=== PATIENT | female | born 2000 | race African-American/Black ===

== ENCOUNTER 2022-09-16 13:11 | Day surgery (SDC) | payer OTHER, SELFPAY ==
[2022-09-16 14:42] VITALS: BMI 22.6
[2022-09-16] MEDS ORDERED: hydrALAZINE 20 MG/ML VIAL SLOW IVP PRN (15:11)
[2022-09-16] MEDS ORDERED: Lactated Ringer's 1,000 ML IV SCH (15:15)
[2022-09-16 15:32] LABS: Bilirubin Neg (Negative); Blood, Urine Negative (Negative); Clarity Clear (Clear); Glucose, Urine (Dipstick) Normal (Negative); Ketone, Urine 50 mg/dL (Negative); Leukocyte 25 (Negative); Nitrite Negative (Negative); Protein, Urine (Dipstick) 15 mg/dl (Neg-Trace); Specific Gravity, Urine 1.015 (1.005-1.030); pH, Urine 6.5 (5.0-9.0)
[2022-09-16 15:38] LABS: CAUTI Indications for Culture Pelvic or flank pain; RBC/HPF 0-3 HPF (0-3)
[2022-09-16 15:39] LABS: Bacteria/HPF 2+ HPF (None Seen); Mucous/LPF 3+ LPF (<2+)
[2022-09-16 15:41] LABS: Trichomonas/HPF 1+ HPF (None Seen)
[2022-09-16 15:42] LABS: Urine Culture Reflex No No
[2022-09-16 15:48] LABS: #Eosinphils 0.1 10x3/uL (0.0-0.5); #Monocytes 0.6 10x3/uL (0.0-1.1); #Neutrophils 5.7 10x3/uL (1.5-8.4); %Basophils 0.4 % (0.0-2.0); %Eosinophils 1.3 % (0.0-6.0); %Lymphocytes 23.8 % (18.0-47.0); %Monocytes 7.5 % (0.0-10.0); %Neutrophils 66.6 % (40.0-75.0); Hematocrit 26.3 % (34.9-44.5); Hemoglobin 8.3 g/dL (12.0-15.5); Mean Corpuscular HGB CONC 31.6 g/dL (32.0-36.0); Mean Corpuscular Hemoglobin 26.8 pg (27.0-33.0); Mean Corpuscular Volume 84.8 fl (81.6-98.3); Mean Platelet Volume 11.9 fl (7.4-10.4); Platelet Count 149 10x3/uL (150-450); RBC Distribution Width 13.4 % (11.5-14.5); White Blood Cell (WBC) Count 8.5 10x3/uL (3.5-10.5)
[2022-09-16 15:58] LABS: ALT (SGPT) 26 U/L (8-55); AST (SGOT) 29 U/L (5-34); Albumin 3.6 g/dL (3.5-5.0); Alkaline Phosphatase 49 U/L (40-100); Anion Gap 14 mmol/L (10-20); BUN (Urea Nitrogen) 6 mg/dL (7.0-18.7); Bilirubin, Total 0.4 mg/dL (0.2-1.2); Calc. Creatinine Clearance 129 mL/min (70-130); Calcium 8.7 mg/dL (7.8-10.44); Carbon Dioxide 21 mmol/L (22-29); Chloride 105 mmol/L (98-107); Estimated GFR 131; Globulin 3.1 g/dL (2.4-3.5); Glucose 78 mg/dL (70-105); Potassium 3.9 mmol/L (3.5-5.1); Protein, Total 6.7 g/dL (6.0-8.3); Sodium 136 mmol/L (136-145)
[2022-09-16] MEDS ORDERED: Ondansetron ODT 4 MG TAB PO PRN (16:02)
[2022-09-16] MEDS ORDERED: Ondansetron PF 4 MG/2 ML Vial IVP SCH (17:00)
[2022-09-16] MEDS ORDERED: cefTRIAXone (ROCEPHIN) 1 GM VIAL IM SCH (17:00)
[2022-09-16] MEDS ORDERED: Acetaminophen 500 MG TAB PO SCH (17:00)
[2022-09-17 00:48] LABS: Chlamydia by PCR, Vaginal Swab DETECTED (NotDetected); GC by PCR, Vaginal Swab Not Detected (NotDetected)
== END 2022-09-16 19:35 | disposition home or self-care (01) ==
LOC: CSHLD/OP 13:11
PROVIDERS: ATTEND Family Medicine
DX: O99.891 Other specified diseases and conditions complicating pregnancy (principal); R10.30 Lower abdominal pain, unspecified; M54.50 Low back pain, unspecified; O23.592 Infection of other part of genital tract in pregnancy, second trimester; A59.01 Trichomonal vulvovaginitis; O23.42 Unspecified infection of urinary tract in pregnancy, second trimester; N39.0 Urinary tract infection, site not specified; O21.2 Late vomiting of pregnancy; O34.82 Maternal care for other abnormalities of pelvic organs, second trimester; N83.201 Unspecified ovarian cyst, right side; O99.342 Other mental disorders complicating pregnancy, second trimester; F41.9 Anxiety disorder, unspecified; F32.A Depression, unspecified; R45.851 Suicidal ideations; O26.42 Herpes gestationis, second trimester; O23.02 Infections of kidney in pregnancy, second trimester; N12 Tubulo-interstitial nephritis, not specified as acute or chronic; Z3A.25 25 weeks gestation of pregnancy; Z79.899 Other long term (current) drug therapy
CPT/HCPCS: 80053; 81001; 85025; 87480; 87491; 87510; 87591; 87660; J0696

== ENCOUNTER 2022-10-18 13:28 | Day surgery (SDC) | payer OTHER ==
[2022-10-18] MEDS ORDERED: Acetaminophen 500 MG TAB ONE (13:36)
[2022-10-18] MEDS ORDERED: Acetaminophen 500 MG TAB PO SCH (13:45)
[2022-10-18] MEDS ORDERED: Iron Sucrose Complex 500 MG in Sodium Chloride 0.9% 250 ML 250 ML IVPB SCH (13:45)
== END 2022-10-18 18:35 | disposition home or self-care (01) ==
LOC: CSHSDC/OP 13:28
PROVIDERS: ATTEND Student in an Organized Health Care Education/Training Program
DX: O99.019 Anemia complicating pregnancy, unspecified trimester (principal); D64.9 Anemia, unspecified; Z3A.00 Weeks of gestation of pregnancy not specified
CPT/HCPCS: J1756; J7050

== ENCOUNTER 2022-11-22 13:01 | Day surgery (SDC) | payer OTHER ==
[2022-11-22 13:41] VITALS: BMI 24.4
[2022-11-22] MEDS ORDERED: hydrALAZINE 20 MG/ML VIAL SLOW IVP PRN (14:23)
[2022-11-22] MEDS ORDERED: Ondansetron PF 4 MG/2 ML Vial IVP PRN (14:55)
[2022-11-22] MEDS: Lactated Ringer's 1,000 ML IV SCH ×2 (15:12→17:35)
[2022-11-22 15:36] LABS: Bilirubin Neg (Negative); Blood, Urine 50 (Negative); Clarity Clear (Clear); Glucose, Urine (Dipstick) Normal (Negative); Ketone, Urine Negative (Negative); Leukocyte Negative (Negative); Nitrite Negative (Negative); Protein, Urine (Dipstick) 30 mg/dl (Neg-Trace); Specific Gravity, Urine 1.015 (1.005-1.030); pH, Urine 6.5 (5.0-9.0)
[2022-11-22 16:01] LABS: Hematocrit 28.3 % (34.9-44.5); Hemoglobin 9.1 g/dL (12.0-15.5); Mean Corpuscular HGB CONC 32.2 g/dL (32.0-36.0); Mean Corpuscular Hemoglobin 27.5 pg (27.0-33.0); Mean Corpuscular Volume 85.5 fl (81.6-98.3); Mean Platelet Volume 12.7 fl (7.4-10.4); Platelet Count 98 10x3/uL (150-450); RBC Distribution Width 15.3 % (11.5-14.5); Red Blood Cell (RBC) Count 3.31 10x6/uL (3.90-5.03); White Blood Cell (WBC) Count 5.6 10x3/uL (3.5-10.5)
[2022-11-22 16:01] LABS: RBC/HPF 21-50 HPF (0-3)
[2022-11-22 16:02] LABS: CAUTI Indications for Culture Pelvic or flank pain; Squamous Epithelial 0-3 HPF (0-3)
[2022-11-22 16:03] LABS: Bacteria/HPF 1+ HPF (None Seen); Transitional Epithelial 0-3 HPF (None Seen)
[2022-11-22 16:05] LABS: Urine Culture Reflex No No
[2022-11-22 16:14] LABS: ALT (SGPT) 8 U/L (8-55); AST (SGOT) 18 U/L (5-34); Albumin 3.1 g/dL (3.5-5.0); Alkaline Phosphatase 64 U/L (40-110); Anion Gap 11 mmol/L (10-20); BUN (Urea Nitrogen) 4 mg/dL (7.0-18.7); Bilirubin, Total 0.4 mg/dL (0.2-1.2); Calc. Creatinine Clearance 159 mL/min (70-130); Calcium 8.5 mg/dL (7.8-10.44); Carbon Dioxide 24 mmol/L (22-29); Chloride 108 mmol/L (98-107); Estimated GFR 131; Globulin 2.5 g/dL (2.4-3.5); Glucose 88 mg/dL (70-105); Lipase 17 U/L (8-78); Potassium 3.8 mmol/L (3.5-5.1); Protein, Total 5.6 g/dL (6.0-8.3); Sodium 139 mmol/L (136-145)
[2022-11-22 16:19] LABS: MDiff Complete? YES
[2022-11-22 16:29] LABS: Eosinophils 1 % (0-10); Lymphocytes 23 % (21-51); Monocytes 17 % (0-10); Neutrophil 59 % (42-75)
[2022-11-22 16:34] LABS: Basophilic Stippling SLIGHT = 1-2 cells (100X) (None Seen); Platelet Adequacy Comment Appears Decreased; Polychromasia SLIGHT = 2-3 cells (100X) (0-2/hpf)
[2022-11-22 16:35] LABS: Large Platelets SLIGHT (None Seen)
[2022-11-22] MEDS ORDERED: Acetaminophen 500 MG TAB PO SCH (18:00)
[2022-11-23 00:32] LABS: GC by PCR, Vaginal Swab Not Detected (NotDetected)
== END 2022-11-22 18:50 | disposition home or self-care (01) ==
LOC: CSHLD/OP 13:01
PROVIDERS: ATTEND Emergency Medicine
DX: O46.93 Antepartum hemorrhage, unspecified, third trimester (principal); O21.2 Late vomiting of pregnancy; O99.891 Other specified diseases and conditions complicating pregnancy; R19.7 Diarrhea, unspecified; R10.11 Right upper quadrant pain; O99.013 Anemia complicating pregnancy, third trimester; D64.9 Anemia, unspecified; O99.343 Other mental disorders complicating pregnancy, third trimester; F32.A Depression, unspecified; O99.113 Other diseases of the blood and blood-forming organs and certain disorders involving the immune mechanism complicating pregnancy, third trimester; D69.6 Thrombocytopenia, unspecified; O98.813 Other maternal infectious and parasitic diseases complicating pregnancy, third trimester; A74.9 Chlamydial infection, unspecified; A59.9 Trichomoniasis, unspecified; O26.43 Herpes gestationis, third trimester; Z87.42 Personal history of other diseases of the female genital tract; Z91.09 Other allergy status, other than to drugs and biological substances; Z79.899 Other long term (current) drug therapy; Z3A.35 35 weeks gestation of pregnancy
CPT/HCPCS: 36415; 76770; 80053; 81001; 83690; 85025; 87480; 87510; 87591; 87660; 99284

== ENCOUNTER 2022-12-20 08:17 | Inpatient (IN) | payer OTHER ==
[2022-12-20 08:35] VITALS: BMI 25.0
[2022-12-20] MEDS ORDERED: hydrALAZINE 20 MG/ML VIAL SLOW IVP PRN (08:59)
[2022-12-20] MEDS ORDERED: Docusate 100 MG CAP PO PRN (09:15)
[2022-12-20] MEDS ORDERED: Ondansetron PF 4 MG/2 ML Vial IVP PRN (09:15)
[2022-12-20] MEDS ORDERED: Promethazine HCl 25 MG/ML VIAL IM PRN (09:15)
[2022-12-20] MEDS ORDERED: Oxytocin 30 units/NS 500 ML 500 ML IV SCH ×2 (09:15→09:30)
[2022-12-20] MEDS ORDERED: Lidocaine 1% (PF) 30 ML VIAL SC PRN (09:21)
[2022-12-20] MEDS ORDERED: Ibuprofen 800 MG TAB PO PRN (09:21)
[2022-12-20] MEDS ORDERED: Penicillin G Potassium 5 MILL.UNITS in Sodium Chloride 0.9% 100 ML IVPB SCH (09:30)
[2022-12-20 10:30] LABS: Hematocrit 35.9 % (34.9-44.5); Hemoglobin 11.6 g/dL (12.0-15.5); Mean Corpuscular HGB CONC 32.3 g/dL (32.0-36.0); Mean Corpuscular Hemoglobin 27.5 pg (27.0-33.0); Mean Corpuscular Volume 85.1 fl (81.6-98.3); Mean Platelet Volume 13.1 fl (7.4-10.4); Platelet Count 103 10x3/uL (150-450); Red Blood Cell (RBC) Count 4.22 10x6/uL (3.90-5.03); White Blood Cell (WBC) Count 11.1 10x3/uL (3.5-10.5)
[2022-12-20 10:58] LABS: HBSAg Index 0.16 S/CO (0-0.99); Hep B Surf Ag - L&D Non-Reactive S/CO (NonReactive)
[2022-12-20 10:59] LABS: Syphilis Antibody Nonreactive (Nonreactive); Syphilis Antibody Index 0.05 S/CO (<1.00 Non-Reactive)
[2022-12-20] MEDS: Penicillin G 2.5 MILL.units 2.5 MILL.UNITS in Premix 1 BAG IVPB SCH ×2 (15:06→19:01)
[2022-12-20] MEDS: fentaNYL 50 mcg/mL 1 mL Vial SLOW IVP PRN ×2 (15:07→17:29)
[2022-12-20] MEDS ORDERED: Lactated Ringer's 1,000 ML IV SCH (17:30)
[2022-12-20] MEDS ORDERED: Bupivacaine 0.25% HCL 30 ML VIAL ONE (18:06)
[2022-12-20] MEDS ORDERED: Acetaminophen 500 MG TAB PO PRN (19:17)
[2022-12-20] MEDS ORDERED: fentaNYL/Ropivacaine Epidural 100 ML ONE (19:44)
[2022-12-21] MEDS ORDERED: Lanolin Ointment 7 GM TUBE TOP PRN (03:32)
[2022-12-21] MEDS ORDERED: Boostrix 0.5 ML (Tdap) VIAL (>/=7 yrs of age) IM ONE (03:32)
[2022-12-21] MEDS ORDERED: Bisacodyl 10 MG SUPP PR PRN (03:32)
[2022-12-21] MEDS ORDERED: Milk Of Magnesia 30 ML UDCUP PO PRN (03:32)
[2022-12-21] MEDS ORDERED: Benzocaine-Menthol 82.5 ML CAN TOP PRN (03:32)
[2022-12-21] MEDS ORDERED: hydrALAZINE 20 MG/ML VIAL SLOW IVP PRN (03:32)
[2022-12-21] MEDS ORDERED: Preparation H Ointment 28 GM TUBE PR PRN (03:32)
[2022-12-21] MEDS: Penicillin G 2.5 MILL.units 2.5 MILL.UNITS in Premix 1 BAG IVPB SCH (03:52)
[2022-12-21] MEDS: Ibuprofen 800 MG TAB PO SCH ×3 (05:05→21:35)
[2022-12-21] MEDS: Ferrous Sulfate 325 MG TAB PO SCH ×2 (07:11→16:26)
[2022-12-21] MEDS: Docusate 100 MG CAP PO SCH ×2 (08:23→21:35)
[2022-12-22 05:16] LABS: Hematocrit 31.2 % (34.9-44.5); Hemoglobin 9.8 g/dL (12.0-15.5)
[2022-12-22] MEDS: Ibuprofen 800 MG TAB PO SCH ×3 (05:58→21:36)
[2022-12-22] MEDS: Docusate 100 MG CAP PO SCH ×2 (07:34→21:36)
[2022-12-22] MEDS: Ferrous Sulfate 325 MG TAB PO SCH ×2 (07:34→16:57)
[2022-12-23] MEDS: Ibuprofen 800 MG TAB PO SCH (05:52)
[2022-12-23 07:50] VITALS: BP 121/76; TEMP 98.5
[2022-12-23] MEDS: Ferrous Sulfate 325 MG TAB PO SCH (08:43)
[2022-12-23] MEDS: Docusate 100 MG CAP PO SCH (08:43)
== END 2022-12-23 11:14 | disposition home or self-care (01) | DRG 806 ==
LOC: CSHLD/OP 08:17 → CSHLD 08:49 → CSHPP 12-21 03:15
PROVIDERS: ADMIT Obstetrics & Gynecology; ATTEND Obstetrics & Gynecology
PROC: 10907ZC Drainage of Amniotic Fluid, Therapeutic from Products of Conception, Via Natural or Artificial Opening (ICD-10-PCS; 2022-12-20)
PROC: 10H07YZ Insertion of Other Device into Products of Conception, Via Natural or Artificial Opening (ICD-10-PCS; 2022-12-20)
PROC: 10E0XZZ Delivery of Products of Conception, External Approach (ICD-10-PCS; principal; 2022-12-21)
PROC: 0KQM0ZZ Repair Perineum Muscle, Open Approach (ICD-10-PCS; 2022-12-21)
PROC: 0UQMXZZ Repair Vulva, External Approach (ICD-10-PCS; 2022-12-21)
DX: O99.344 Other mental disorders complicating childbirth (principal); O98.52 Other viral diseases complicating childbirth; Z37.0 Single live birth; O99.824 Streptococcus B carrier state complicating childbirth; B00.9 Herpesviral infection, unspecified; D64.9 Anemia, unspecified; F41.9 Anxiety disorder, unspecified; O69.81X0 Labor and delivery complicated by cord around neck, without compression, not applicable or unspecified; O71.82 Other specified trauma to perineum and vulva; F32.A Depression, unspecified; O70.1 Second degree perineal laceration during delivery; Z3A.39 39 weeks gestation of pregnancy; Z79.899 Other long term (current) drug therapy
CPT/HCPCS: 36415; 51702; 85014; 85018; 85027; 86780; 86850; 86900; 86901; 87340; 99285; J2540; J3010; J3490; S0020

== ENCOUNTER 2023-03-19 08:49 | Emergency (ER) | payer BC, OTHER | END 2023-03-19 10:08 | disposition home or self-care (01) | LOC: CSHERS 08:49 | DX: N76.4 Abscess of vulva (principal) | CPT/HCPCS: 56405 ==

== ENCOUNTER 2025-01-10 04:29 | Emergency (ER) | payer BC ==
[2025-01-10 04:58] LABS: Glucose, Urine (Dipstick) Normal (Negative); Leukocyte 100 (Negative); Protein, Urine (Dipstick) 30 mg/dl (Neg-Trace); Specific Gravity, Urine 1.015 (1.005-1.030)
[2025-01-10 05:02] LABS: Pregnancy Test - Urine (BHCG) Negative (Negative); Pregu Control Background? CLEAR/WHITE (CLR/WHITE); Pregu Control Bar Appear? YES (CONTROL BAR)
[2025-01-10 05:40] LABS: Bacteria/HPF 1+ HPF (None Seen); CAUTI Indications for Culture Pregnancy; Mucous/LPF 3+ LPF (<2+); RBC/HPF 0-3 HPF (0-3)
[2025-01-10 05:41] LABS: Urine Culture Reflex Yes Yes
== END 2025-01-10 05:44 | disposition home or self-care (01) ==
LOC: CSHERS 04:29
DX: N39.0 Urinary tract infection, site not specified (principal)
CPT/HCPCS: 81001; 81025; 87086; 99283